=== PATIENT | female | born 1930 | race Caucasian/White ===

== ENCOUNTER 2017-11-08 08:24 | Outpatient (CLI) | payer MEDICARE, OTHER ==
--- NOTE | 2017-11-08 11:45 | MRI ---
MRI BRAIN WITH AND WITHOUT IV CONTRAST: Date: 11/08/17 HISTORY: Other frontotemporal dementia. FINDINGS: There is ventricular sulcal prominence due to cortical atrophy. There are multiple foci of T2 prolong ation in the periventricular white matter consistent with chronic small vessel ischemic disease. No e vidence of infarct, hemorrhage, mass, midline shift, or abnormal extra-axial fluid collections are se en. No restricted diffusion is noted. No abnormal postcontrast enhancement is identified. There is a proteinaceous cyst in the left sphenoid sinus. IMPRESSION: 1. Cortical atrophy. 2. Chronic small vessel ischemic disease. 3. No evidence of acute intracranial process or mass. POS: OFF
== END 2017-11-08 08:25 | disposition home or self-care (01) ==
LOC: SCSMRI 08:24
PROVIDERS: ATTEND Psychiatry & Neurology Neurology
DX: G31.09 Other frontotemporal neurocognitive disorder (principal); G31.9 Degenerative disease of nervous system, unspecified; I67.82 Cerebral ischemia
CPT/HCPCS: 70553; 82565

== ENCOUNTER 2020-03-08 16:56 | Emergency (ER) | payer MEDICARE, OTHER ==
--- NOTE | 2020-03-08 17:43 | RAD ---
PORTABLE CHEST: 03/08/20 HISTORY: Fall at home. Diffuse pain. Heart size appears slightly enlarged. Atherosclerotic changes are noted in the aorta. The lungs are c lear of any infiltrates. No rib fractures are identified. The bones appear demineralized. IMPRESSION: No acute findings. POS: OFF
[2020-03-08 17:49] LABS: #Basophils 0.1 thou/uL (0.0-0.2); #Eosinphils 0.1 thou/uL (0.0-0.7); #Lymphocytes 1.1 thou/uL (1.20-3.40); #Monocytes 0.8 thou/uL (0.11-0.59); #Neutrophils 8.6 thou/uL (1.40-6.50); %Basophils 0.5 % (0.0-1.0); %Lymphocytes 10.1 % (21.0-51.0); %Monocytes 7.5 % (0.0-10.0); %Neutrophils 80.9 % (42.0-75.0); Hemoglobin 14.1 g/dL (12.0-16.0); Mean Corpuscular HGB CONC 34.5 g/dL (32.0-36.0); Mean Corpuscular Volume 89.8 fL (78.0-98.0); Mean Platelet Volume 7.6 fL (7.4-10.4); Platelet Count 231 thou/uL (130-400); RBC Distribution Width 11.9 % (11.5-14.5); Red Blood Cell (RBC) Count 4.55 mill/uL (4.20-5.40); White Blood Cell (WBC) Count 10.6 thou/uL (4.8-10.8)
[2020-03-08 18:09] LABS: ALT (SGPT) 16 U/L (8-55); AST (SGOT) 27 U/L (5-34); Albumin 4.4 g/dL (3.4-4.8); Alkaline Phosphatase 43 U/L (40-110); Anion Gap 17 mmol/L (10-20); BUN (Urea Nitrogen) 20 mg/dL (9.8-20.1); Bilirubin, Total 0.8 mg/dL (0.2-1.2); Calc. Creatinine Clearance 0 mL/min (70-130); Calcium 10.2 mg/dL (7.8-10.44); Carbon Dioxide 22 mmol/L (23-31); Chloride 103 mmol/L (98-107); Estimated GFR-MDRD 51; Globulin 2.6 g/dL (2.4-3.5); Glucose 93 mg/dL (83-110); Sodium 138 mmol/L (136-145)
--- NOTE | 2020-03-08 18:30 | CT ---
NONCONTRAST CT HEAD: 03/08/20 HISTORY: Trauma. Dementia. COMPARISON: None. 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 Diminished attenuation is seen in the periventricular white matter which is nonspe cific but likely attributable to chronic small vessel ischemic changes. There is no evidence of an ac [place] cortical infarction, hemorrhage, mass effect, or midline shift. Mild cerebral volume loss is present. The ventricular system is normal in size, shape and position fo r the degree of sulcal atrophy. There is mucosal thickening with mucous retention cyst in the left sp henoid sinus. This has increased density which may be related to inspissated material. Remainder of t he visualized paranasal sinuses demonstrate a normal CT appearance. Calvarial structures have a norm al appearance. IMPRESSION: 1. No acute intracranial abnormality demonstrated. 2. Chronic changes. POS: ZAK
--- NOTE | 2020-03-08 19:05 | CT ---
NONCONTRAST CT CERVICAL SPINE: 03/08/20 HISTORY: Trauma. Unwitnessed fall. TECHNIQUE: Contiguous axial CT images are obtained through the cervical spine from the skull to the T2-3 level. Sagittal and coronal reformat images are provided. FINDINGS: There is slight retrolisthesis of C3 on C4 with slight anterolisthesis of C4 on C5. This is likely on a degenerative basis. Vertebral body heights of the cervical spine are within normal limits, but th ere is mild height loss involving the T3 vertebral body related to a compression fracture of indeterm inate age. Multilevel degenerative changes are seen in the cervical spine. There is a disc osteophyte complex at the C3-4 level which narrows the ventral subarachnoid space and does encroach on the anterior aspect of the spinal cord. There is a disc osteophyte complex at C5-6 level with facet degenerative change s also present at this level. Mild bilateral neural foraminal narrowing is present with slight efface ment of the ventral subarachnoid space. Prevertebral soft tissues are within normal limits without prevertebral soft tissue swelling apprecia christoph. Vascular calcifications are seen in the carotid arteries. There is a peripherally calcifications are seen in the carotid arteries. There is a peripherally calcified 7 mm hypodense nodule in the posterior aspect mid portion left lobe of the thyroid gland. There is mild symmetric biapical pleural and parenchymal scarring which is partially calcified on the right. IMPRESSION: 1. No acute fracture or traumatic subluxation. 2. Slight anterolisthesis of C4 on C5 with suggestion of trace anterolisthesis of C5 on C6 on a degenerative basis. 3. Multilevel degenerative changes. POS: ZAK
== END 2020-03-08 19:19 | disposition home or self-care (01) ==
LOC: ERS 16:56
DX: R68.84 Jaw pain (principal); F03.90 Unspecified dementia, unspecified severity, without behavioral disturbance, psychotic disturbance, mood disturbance, and anxiety; I10 Essential (primary) hypertension; Z86.73 Personal history of transient ischemic attack (TIA), and cerebral infarction without residual deficits; W18.09XA Striking against other object with subsequent fall, initial encounter
CPT/HCPCS: 36415; 70450; 71045; 72125; 80053; 84484; 85025; 93005